=== PATIENT | female | born 1985 | race Hispanic/Latino ===

== ENCOUNTER 2019-11-05 07:52 | Observation (INO) | payer OTHER, MEDICAID ==
[~2019-11-05] VITALS: Ht 157.5 cm; Wt 105.7 kg
[2019-11-05 08:49] LABS: APPEARANCE,URINE Clear (CLEAR); BILIRUBIN,URINE Negative (NEGATIVE); COLOR,URINE Yellow (YELLOW); GLUCOSE, URINE (UA) Negative (NEGATIVE); KETONES,URINE Negative (NEGATIVE); LEUKOCYTE ESTERASE ,URINE Trace (NEGATIVE); NITRATE,URINE Negative (NEGATIVE); OCCULT BLOOD,URINE Negative (NEGATIVE); PH,URINE 6.5 (5.0-8.0); PROTEIN,URINE POS 1+ mg/dL (NEGATIVE)
[2019-11-05 09:03] LABS: BACTERIA,URINE Few /HPF (None Seen); RBC,URINE 0-1 /HPF (0-1); SQUAMOUS EPITHELIAL CELL,UR 0-2 /HPF (0-2)
[2019-11-05 09:38] LABS: BASOPHILS % (AUTO) 0.4 % (0.0-5.0); EOSINOPHILS % (AUTO) 1.7 % (0.0-8.0); HEMATOCRIT 32.7 % (36-48); LYMPHOCYTES % (AUTO) 14.4 % (21.0-51.0); MEAN CORPUSCULAR HEMOGLOBIN 29.8 pg (27.0-33.0); MEAN CORPUSCULAR HGB CONC 33.6 g/dL (32.0-36.0); MEAN CORPUSCULAR VOLUME 88.6 fL (79-99); NEUTROPHILS % (AUTO) 77.1 % (40.0-77.0); PLATELET COUNT (AUTO) 107 K/uL (130-400); RED BLOOD CELL COUNT(AUTO) 3.69 MIL/uL (4.00-5.50); RED CELL DISTRIBUTION WIDTH 14.6 % (11.0-15.5); WHITE BLOOD COUNT (AUTO) 10.4 K/uL (4.8-10.8)
[2019-11-05 09:43] LABS: INR 0.88 (0.85-1.15); PARTIAL THROMBOPLASTIN TIME 28.9 SEC (26.3-35.5); PROTHROMBIN TIME 9.6 SEC (9.6-11.6)
[2019-11-05 10:14] LABS: CREATININE 0.6 mg/dL (0.5-1.5); POTASSIUM 3.6 mmol/L (3.5-5.1)
[2019-11-05 10:18] LABS: ALBUMIN 2.2 g/dL (3.5-5.0); BILIRUBIN,TOTAL 0.4 mg/dL (0.2-1.0); TOTAL PROTEIN, SERUM 5.9 g/dL (6.0-8.3)
== END 2019-11-05 10:55 | disposition home or self-care (01) ==
LOC: LDH 07:52
DX: O60.03 Preterm labor without delivery, third trimester (principal); O62.9 Abnormality of forces of labor, unspecified; Z3A.37 37 weeks gestation of pregnancy
CPT/HCPCS: 36415; 80053; 81001; 84550; 85025; 85384; 85610; 85730; G0378 ×2

== ENCOUNTER 2019-11-07 02:10 | Inpatient (IN) | payer OTHER, MEDICAID ==
[~2019-11-07] VITALS: Ht 157.5 cm; Wt 105.2 kg
[2019-11-07 02:40] LABS: APPEARANCE,URINE Clear (CLEAR); BILIRUBIN,URINE Negative (NEGATIVE); COLOR,URINE Yellow (YELLOW); GLUCOSE, URINE (UA) Negative (NEGATIVE); KETONES,URINE Negative (NEGATIVE); LEUKOCYTE ESTERASE ,URINE Small (NEGATIVE); NITRATE,URINE Negative (NEGATIVE); OCCULT BLOOD,URINE Negative (NEGATIVE); PH,URINE 7.5 (5.0-8.0); PROTEIN,URINE POS 2+ mg/dL (NEGATIVE)
[2019-11-07 02:55] LABS: AMORPHOUS SEDIMENT,UR Few /LPF (None Seen); BACTERIA,URINE Few /HPF (None Seen); MUCUS,URINE Few LPF (None Seen); RBC,URINE 0-1 /HPF (0-1)
[2019-11-07] MEDS ORDERED: LACTATED RINGERS 1000ML 1,000 ML IV PRN (03:43)
[2019-11-07] MEDS ORDERED: AMPICILLIN 1GM+NS 50ML 50 ML IV SCH (03:45)
[2019-11-07] MEDS ORDERED: AMPICILLIN 2GM+NS 100ML 100 ML IV SCH (03:45)
[2019-11-07 03:56] VITALS: BP 150/73
[2019-11-07] MEDS ORDERED: LABE100T5 PO (03:58)
[2019-11-07 04:08] LABS: BASOPHILS % (AUTO) 0.4 % (0.0-5.0); EOSINOPHILS % (AUTO) 0.6 % (0.0-8.0); HEMATOCRIT 33.6 % (36-48); LYMPHOCYTES % (AUTO) 15.9 % (21.0-51.0); MEAN CORPUSCULAR HEMOGLOBIN 30.2 pg (27.0-33.0); MEAN CORPUSCULAR HGB CONC 33.9 g/dL (32.0-36.0); MEAN CORPUSCULAR VOLUME 89.1 fL (79-99); MONOCYTES % (AUTO) 6.8 % (3.0-13.0); PLATELET COUNT (AUTO) 81 K/uL (130-400); RED BLOOD CELL COUNT(AUTO) 3.77 MIL/uL (4.00-5.50); RED CELL DISTRIBUTION WIDTH 14.8 % (11.0-15.5); WHITE BLOOD COUNT (AUTO) 10.4 K/uL (4.8-10.8)
[2019-11-07 04:22] LABS: INR 0.88 (0.85-1.15); PARTIAL THROMBOPLASTIN TIME 30.3 SEC (26.3-35.5); PROTHROMBIN TIME 9.6 SEC (9.6-11.6)
[2019-11-07 04:25] LABS: CREATININE 0.7 mg/dL (0.5-1.5); POTASSIUM 3.5 mmol/L (3.5-5.1)
[2019-11-07 04:30] LABS: ALBUMIN 2.2 g/dL (3.5-5.0); BILIRUBIN,TOTAL 0.6 mg/dL (0.2-1.0); TOTAL PROTEIN, SERUM 6.2 g/dL (6.0-8.3)
[2019-11-07] MEDS: LACTATED RINGERS 1000ML 1,000 ML IV SCH ×2 (04:35→05:40)
[2019-11-07] MEDS ORDERED: OXYTOCIN-LR 20 UNITS/1000 ML 1,000 ML IV ONE (05:55)
[2019-11-07] MEDS ORDERED: OXYTOCIN 10 USP UNITS/ML 20 UNIT in LACTATED RINGERS 1000ML 1,000 ML IV SCH (06:00)
[2019-11-07] MEDS ORDERED: ACETAMINOPHEN-CODEINE 300/30MG TAB PO PRN (08:45)
[2019-11-07] MEDS ORDERED: OXYTOCIN-LR 20 UNITS/1000 ML 1,000 ML IV SCH (08:45)
[2019-11-07] MEDS ORDERED: DIPH,PERTUSS(ACELL),TET VAC/PF 0.5 ML VIAL IM PRN (08:45)
[2019-11-07] MEDS ORDERED: ACETAMINOPHEN 325 MG TAB PO PRN (08:45)
[2019-11-07] MEDS ORDERED: MEASLES/MUMPS/RUBELLA VACCINE, LIVE 0.5 ML/VIAL SQ PRN (08:45)
[2019-11-07] MEDS ORDERED: WITCH HAZEL 1 PAD TP PRN (08:45)
[2019-11-07] MEDS ORDERED: LANOLIN 30GM OINTMENT TP PRN (08:45)
[2019-11-07] MEDS ORDERED: BENZOCAINE/LANOLIN/ALOE VERA 60 ML AEROSOL TP PRN (08:45)
[2019-11-07] MEDS ORDERED: LABETALOL HCL 100 MG TABLET ONE (08:50)
[2019-11-07] MEDS ORDERED: LABETALOL HCL 100 MG TABLET PO ONE (09:00)
[2019-11-07] MEDS: IBUPROFEN 600 MG TABLET PO PRN ×2 (09:15→16:27)
[2019-11-07 10:15] VITALS: BP 133/71
[2019-11-07] MEDS: DOCUSATE SODIUM 100 MG CAP PO SCH ×2 (10:15→21:09)
[2019-11-07 11:52] VITALS: BP 138/82
[2019-11-07 16:12] VITALS: BP 132/76
[2019-11-07 18:43] VITALS: BP 137/79
[2019-11-07 22:50] VITALS: BP 130/79
[2019-11-08 02:43] VITALS: BP 131/81
[2019-11-08] MEDS: IBUPROFEN 600 MG TABLET PO PRN (07:48)
[2019-11-08] MEDS: DOCUSATE SODIUM 100 MG CAP PO SCH (07:48)
[2019-11-08] MEDS ORDERED: LABETALOL HCL 100 MG TABLET PO SCH (09:00)
[2019-11-08 09:11] LABS: HEPATITIS Bs ANTIGEN SCREEN P Negative (Negative)
--- NOTE | 2019-11-08 11:25 | NUR ---
INSTRUCTIONS READ AND EXPLAINED TO PATIENT. RX OR MOTRIN 800MG HANDED TO PATIENT. PATIENT VOICED UNDERSTANDING ON ALL INSTRUCTIONS.
[2020-02-05] MEDS ORDERED: NAPR220C62 PO (10:28)
== END 2019-11-08 11:45 | disposition home or self-care (01) | DRG 806 ==
LOC: EDH 02:10 → OBSVTOIN 02:11 → LDH 02:11 → WSH 10:07
PROC: 10E0XZZ Delivery of Products of Conception, External Approach (ICD-10-PCS; principal; 2019-11-07)
PROC: 3E0234Z Introduction of Serum, Toxoid and Vaccine into Muscle, Percutaneous Approach (ICD-10-PCS; 2019-11-07)
DX: O24.420 Gestational diabetes mellitus in childbirth, diet controlled (principal); O10.92 Unspecified pre-existing hypertension complicating childbirth; Z37.0 Single live birth; O69.81X0 Labor and delivery complicated by cord around neck, without compression, not applicable or unspecified; O99.824 Streptococcus B carrier state complicating childbirth; O62.3 Precipitate labor; Z3A.37 37 weeks gestation of pregnancy; Z23 Encounter for immunization
CPT/HCPCS: 36415; 80053; 81001; 82120; 84550; 85025; 85384; 85610; 85730; 86592; 86850; 86900; 86901; 87088; 87340; 90715; A4606; G0378; J0290; J2590; J7120

== ENCOUNTER → 2019-11-29 | Outpatient (CLI) | payer OTHER, MEDICAID ==
[~2019-11-29] MED LIST: LABE100T5 PO; NAPR220C62 PO
== END | disposition home or self-care (01) ==
LOC: RAH 11:12
PROVIDERS: ATTEND Specialist
DX: M25.561 Pain in right knee (principal)
CPT/HCPCS: 93971

== ENCOUNTER 2020-02-06 11:31 | Day surgery (SDC) | payer OTHER, MEDICAID ==
[2020-02-04 10:08] LABS: BASOPHILS % (AUTO) 0.7 % (0.0-5.0); EOSINOPHILS % (AUTO) 6.1 % (0.0-8.0); HEMATOCRIT 36.7 % (36-48); LYMPHOCYTES % (AUTO) 18.2 % (21.0-51.0); MEAN CORPUSCULAR HEMOGLOBIN 29.7 pg (27.0-33.0); MEAN CORPUSCULAR HGB CONC 33.5 g/dL (32.0-36.0); MEAN CORPUSCULAR VOLUME 88.6 fL (79-99); MONOCYTES % (AUTO) 4.2 % (3.0-13.0); NEUTROPHILS % (AUTO) 70.5 % (40.0-77.0); PLATELET COUNT (AUTO) 264 K/uL (130-400); RED BLOOD CELL COUNT(AUTO) 4.14 MIL/uL (4.00-5.50); RED CELL DISTRIBUTION WIDTH 12.2 % (11.0-15.5); WHITE BLOOD COUNT (AUTO) 9.2 K/uL (4.8-10.8)
[2020-02-05 10:13] VITALS: BP 136/73
[2020-02-06] VITALS (20 sets, daily range): BP systolic 133–155; BP diastolic 72–86
[~2020-02-06] VITALS: Ht 157.5 cm; Wt 92.3 kg
[~2020-02-06 11:31] MED LIST changes: -LABE100T5 PO; +LACTATED RINGERS 1000ML 1,000 ML IV SCH
[2020-02-06] MEDS ORDERED: SUCCINYLCHOLINE 200MG/10ML SYR ONE ×3 (13:48→14:12)
[2020-02-06] MEDS ORDERED: LIDOCAINE PF 2% 5ML ABBOJECT ONE ×3 (13:48→14:12)
[2020-02-06] MEDS ORDERED: ROCURONIUM 10MG/1ML SYR 10 MG/ML ML ONE ×2 (13:49→14:08)
[2020-02-06] MEDS ORDERED: PROPOFOL 10 MG/ML 20ML VIAL IV ONE ×2 (13:49→14:07)
[2020-02-06] MEDS ORDERED: MIDAZOLAM HCL 1 MG/ML 2ML VIAL ONE ×2 (13:49→14:07)
[2020-02-06] MEDS ORDERED: ONDANSETRON HCL 4 MG/2 ML VIAL ONE ×3 (13:49→17:22)
[2020-02-06] MEDS ORDERED: FENTANYL CITRATE PF 50 MCG/1 ML 2ML VIAL ONE ×2 (13:51→14:08)
[2020-02-06] MEDS ORDERED: DEXAMETHASONE SOD PHOSPHATE 10MG/ML 1ML VIAL ONE (14:07)
[2020-02-06] MEDS ORDERED: NEOSTIGMINE 5MG/5ML SYR IV ONE (14:08)
[2020-02-06] MEDS ORDERED: GLYCOPYRROLATE 1 MG/5 ML SYRINGE ONE (14:08)
[2020-02-06] MEDS ORDERED: MEPERIDINE-PF 25 MG/ML SYG ONE ×2 (14:31→15:34)
[2020-02-06] MEDS ORDERED: EPHEDRINE SULFATE 50 MG/ML AMPULE ONE (14:44)
[2020-02-06] MEDS ORDERED: KETOROLAC TROMETHAMINE 30MG/ML ONE (15:25)
--- NOTE | 2020-02-06 16:05 | NUR ---
ASSESSMENT RECEIVED PT FROM PACU NURSE JUAN DIEGO RN. PT [id number]. DRSG TO AND X2 DRY AND INTACT. NO BLEEDING, OOZING NOTED TO SITE
--- NOTE | 2020-02-06 17:30 | NUR ---
DISCHARGE PT DISCHARGED. DRSG TO ABD DRY AND INTACT. NO BLEEDING, OOZING NOTED TO SITE.
== END 2020-02-06 17:50 | disposition home or self-care (01) ==
LOC: DAH 11:31
PROVIDERS: ATTEND Specialist
DX: Z30.2 Encounter for sterilization (principal); Z20.828 Contact with and (suspected) exposure to other viral communicable diseases; E66.01 Morbid (severe) obesity due to excess calories; I10 Essential (primary) hypertension; Z83.3 Family history of diabetes mellitus; Z82.49 Family history of ischemic heart disease and other diseases of the circulatory system
CPT/HCPCS: 36415; 58671; 84703; 85025; 86850; 86900; 86901; A4215 ×2; A4221; A4222; A4223; A4264; A4351; A4510; A4600; A4930; A6260; C1769 ×2; C9803; J0330 ×3; J1100; J1885; J2001 ×3; J2175 ×2; J2250 ×2; J2405 ×3; J2704 ×2; J2710; J3010 ×2; J3490 ×2; J7030; J7120; U0003

== ENCOUNTER → 2020-09-17 | Outpatient (CLI) | payer OTHER, MEDICAID ==
[~2020-09-17] MED LIST changes: -LACTATED RINGERS 1000ML 1,000 ML IV SCH
== END | disposition home or self-care (01) ==
LOC: OIH 15:06
PROVIDERS: ATTEND Internal Medicine
DX: M47.816 Spondylosis without myelopathy or radiculopathy, lumbar region (principal); M46.1 Sacroiliitis, not elsewhere classified
CPT/HCPCS: 72100; 72202